=== PATIENT | female | born 1985 | race Caucasian/White ===

== ENCOUNTER 2017-02-02 02:49 | Observation (INO) | payer BC, OTHER ==
[2017-02-02] MEDS ORDERED: TERBUTALINE SULFATE 1 MG/ML 1ML VIAL SC ONE (03:15)
[2017-02-02] MEDS ORDERED: TERBUTALINE SULFATE 1 MG/ML 1ML VIAL SC SCH (03:30)
[2017-02-02] MEDS ORDERED: LACTATED RINGER'S 1,000 ML IV SCH (03:31)
[2017-02-02] MEDS ORDERED: MAGNESIUM SULFATE 40MG/ML 0 ML IV ONE (03:40)
[2017-02-02] MEDS ORDERED: MAGNESIUM SULFATE 40MG/ML 1,000 ML IV SCH (03:43)
[2017-02-02] MEDS ORDERED: BETAMETHASONE ACET (6MG/ML) 5ML VIAL ONE (03:45)
[2017-02-02 03:57] LABS: Basophils # (auto) 0 uL; Basophils % (auto) 0.3 % (0.0-2.0); Eosinophils # (auto) 0.2 uL; Eosinophils % (auto) 1.3 % (0.0-7.0); Hematocrit 35.2 % (36.0-46.0); Hemoglobin 11.8 g/dL (12.2-16.2); Lymphocytes # (auto) 2.5 uL; Mean Corpuscular Hemoglobin 29.2 pg (28.0-32.0); Mean Corpuscular Hgb Conc. 33.5 g/dL (32.0-36.0); Mean Corpuscular Volume 87.2 fL (80.0-100.0); Monocytes % (auto) 7.5 % (0.0-12.0); Neutrophils % (auto) 72.9 % (37.0-80.0); Platelet Count (auto) 187 10^3/uL (140-450); Red Cell Distribution Width 12.7 % (11.6-16.0); White Blood Cell 13.8 10^3/uL (4.4-10.8)
[2017-02-02] MEDS ORDERED: NIFEdipine 10 MG CAP ONE (03:58)
[2017-02-02] MEDS ORDERED: NIFEdipine 10 MG CAP PO ONE (04:00)
[2017-02-02] MEDS ORDERED: BETAMETHASONE ACET (6MG/ML) 5ML VIAL IM ONE (04:00)
[2017-02-02 04:27] LABS: Albumin 2.9 g/dL (3.4-5.0); BUN/Creatinine Ratio 9.4; Bilirubin, Total 0.3 mg/dL (0.2-1.0); Calcium 8.8 mg/dL (8.5-10.1); Total Protein 6.6 g/dL (6.4-8.2)
[2017-02-02 04:43] LABS: INR 0.88 (0.9-1.15); Partial Thromboplastin Time 28.3 sec (22.64-33.71); Prothrombin Time 9.5 sec (9.37-12.3)
[2017-02-02 04:46] LABS: Potassium 2.9 mmol/L (3.5-5.1)
== END 2017-02-02 05:00 | disposition home or self-care (01) | DRG 782 ==
LOC: LDRP 02:49
PROVIDERS: ADMIT Obstetrics & Gynecology; ATTEND Obstetrics & Gynecology
DX: O62.9 Abnormality of forces of labor, unspecified (principal); Z3A.35 35 weeks gestation of pregnancy
CPT/HCPCS: 36415; 59025; 76805; 80053; 81002; 85025; 85610; 85730; 86850; 86900; 86901; 96361; 96365; 96366; 96372; G0378; J0702; J3105